=== PATIENT | female | born 1990 | race Hispanic/Latino ===

== ENCOUNTER 2019-06-07 10:32 | Emergency (ER) | payer BC, OTHER ==
[2019-06-07 10:45] VITALS: BP 137/96; TEMP 97.6; O2SAT 100
--- NOTE | 2019-06-07 10:48 | ED.PDOC ---
History of Present Illness - General Chief Complaint: Laceration Stated Complaint: laceration to forehead Time Seen by Provider: 06/07/19 10:45 - History of Present Illness Initial Comments: c/o having injury to the forehead from the car trunk, having slight pain , small laceration , slight bleeding , no unconsciousness Severity: mild Improving Factors: nothing Worsening Factors: nothing Associated Symptoms: denies symptoms Allergies/Adverse Reactions: Allergies NO KNOWN ALLERGY Allergy (Verified 06/07/19 10:45) Home Medications: Ambulatory Orders Meloxicam [Mobic] 7.5 mg PO BID #20 tab 08/13/14 Metoclopramide Inj [Reglan Inj] 10 mg PO Q6H #20 vial 08/13/14 Nitrofurantoin Monohydrate Mac [Macrobid] 100 mg PO BIDFD #20 cap 08/13/14 Omeprazole [Prilosec Cap] 20 mg PO ACBK #30 cap 08/13/14 Polyethylene Glycol 3350 [Miralax] 17 gm PO ONCE #30 pckt 08/13/14 Review of Systems - Review of Systems Constitutional: States: no symptoms reported EENTM: States: no symptoms reported Respiratory: States: no symptoms reported Cardiology: States: no symptoms reported Gastrointestinal/Abdominal: States: no symptoms reported Genitourinary: States: no symptoms reported Musculoskeletal: States: no symptoms reported Skin: States: see HPI Neurological: States: no symptoms reported Endocrine: States: no symptoms reported Hematologic/Lymphatic: States: no symptoms reported Past Medical History (General) - Patient Medical History Hx Seizures: No Hx Stroke: No Hx Asthma: No Hx of COPD: No Hx Cardiac Disorders: No Hx Congestive Heart Failure: No Hx Pacemaker: No Hx Hypertension: No Hx Diabetes: No Hx MRSA: No Surgical History: appendectomy - Vaccination History Hx Tetanus, Diphtheria Vaccination: No Hx Influenza Vaccination: No Hx Pneumococcal Vaccination: No Immunizations Up to Date: No - Social History Hx Tobacco Use: No Hx Alcohol Use: Yes - socially Hx Substance Use: No Hx Physical Abuse: No Hx Emotional Abuse: No - Female History Patient is a Female of Child Bearing Age (10 -59 yrs old): Yes Hx Last Menstrual Period: 08/06/14 Family Medical History - Family History Maternal Grandparents Hx Family Hypertension: Yes Physical Exam - Physical Exam General Appearance: Alert, Comfortable Ears, Nose, Throat: hearing grossly normal, normal ENT inspection Neck: non-tender, full range of motion Respiratory: chest non-tender Back Exam: normal inspection Extremity: normal range of motion, non-tender, normal inspection Neurologic: no motor/sensory deficits, alert, normal mood/affect, oriented x 3 Skin Exam: normal color Lymphatic: no adenopathy Procedures - Laceration/Wound Repair Head Wound's Depth, Shape: superficial Wound Explored: clean Betadine Prep?: Yes Wound Repaired With: dermabond Departure - Departure Clinical Impression: Laceration Time of Disposition: 10:52 Disposition: Discharge to Home or Self Care Condition: Good Departure Forms: ED Discharge - Pt. Copy, Patient Portal Self Enrollment Instructions: DI for Laceration Repair Diet: resume usual diet Activity: increase activity as tolerated Home Medications: Ambulatory Orders Meloxicam [Mobic] 7.5 mg PO BID #20 tab 08/13/14 Metoclopramide Inj [Reglan Inj] 10 mg PO Q6H #20 vial 08/13/14 Nitrofurantoin Monohydrate Mac [Macrobid] 100 mg PO BIDFD #20 cap 08/13/14 Omeprazole [Prilosec Cap] 20 mg PO ACBK #30 cap 08/13/14 Polyethylene Glycol 3350 [Miralax] 17 gm PO ONCE #30 pckt 08/13/14
== END 2019-06-07 11:04 | disposition home or self-care (01) ==
LOC: ER 10:32
DX: S01.81XA Laceration without foreign body of other part of head, initial encounter (principal); W22.09XA Striking against other stationary object, initial encounter; Y92.810 Car as the place of occurrence of the external cause